=== PATIENT | male | born 1985 | race Two or more races ===

== ENCOUNTER → 2024-06-17 | Outpatient (CLI) | payer MEDICAID, SELFPAY ==
--- NOTE | 2024-06-17 16:24 | XR_ITS ---
Examination: Hand, left 3 views Technique: Hand AP, oblique, lateral 3 views Date and time of exam: June 17, 2024 1647 hours INDICATIONS: Laceration to the left hand first digit 10 days ago, pain FINDINGS: No acute fracture Mild to moderate osteoarthritis first carpometacarpal joint No foreign body Tiny old bone density dorsal to the distal carpal row on the lateral view IMPRESSION: No acute fracture No opaque foreign body
--- NOTE | 2024-06-17 16:24 | XR_ITS ---
Examination: Wrist, left 3 views Technique: Wrist AP, oblique, lateral 3 views Date and time of exam: June 17, 2024 1647 hours INDICATIONS: Laceration to the left hand 10 days ago FINDINGS: Mild to moderate osteoarthritis first carpometacarpal joint No fracture No opaque foreign body IMPRESSION: Acute fracture
== END | disposition home or self-care (01) ==
LOC: CDIM 16:18
DX: S61.012A Laceration without foreign body of left thumb without damage to nail, initial encounter (principal); X58.XXXA Exposure to other specified factors, initial encounter
CPT/HCPCS: 73110; 73130